=== PATIENT | female | born 1935 | race Caucasian/White ===

== ENCOUNTER → 2016-06-27 | Outpatient (CLI) | payer MEDICARE | LOC: OPSV 06-26 14:00 | DX: S22.010S Wedge compression fracture of first thoracic vertebra, sequela (principal); M80.08XS Age-related osteoporosis with current pathological fracture, vertebra(e), sequela; Z88.0 Allergy status to penicillin; Z88.1 Allergy status to other antibiotic agents; Z91.041 Radiographic dye allergy status; Z91.013 Allergy to seafood; Z91.040 Latex allergy status; Z91.018 Allergy to other foods | CPT/HCPCS: 96372 ==

== ENCOUNTER → 2016-10-15 | Outpatient (CLI) | payer MEDICARE | LOC: KOH-I 10:24 | DX: Z00.00 Encounter for general adult medical examination without abnormal findings (principal); E03.8 Other specified hypothyroidism; E78.2 Mixed hyperlipidemia; G47.09 Other insomnia; I10 Essential (primary) hypertension; J20.8 Acute bronchitis due to other specified organisms; J43.8 Other emphysema; J44.1 Chronic obstructive pulmonary disease with (acute) exacerbation; M13.812 Other specified arthritis, left shoulder; M13.852 Other specified arthritis, left hip; M50.30 Other cervical disc degeneration, unspecified cervical region; M54.12 Radiculopathy, cervical region; M80.08XA Age-related osteoporosis with current pathological fracture, vertebra(e), initial encounter for fracture; Z81.2 Family history of tobacco abuse and dependence; Z87.891 Personal history of nicotine dependence | CPT/HCPCS: 71020; 74176 ==